=== PATIENT | female | born 1975 | race Caucasian/White ===

== ENCOUNTER 2020-04-16 01:31 | Emergency (ER) | payer OTHER ==
[~2020-04-16] VITALS: Ht 152.4 cm; Wt 59.0 kg
[2020-04-16 01:34] VITALS: Ht 152.4 cm; Wt 59.0 kg
[2020-04-16 03:28] LABS: PLATELET COUNT 153 x10^3mcL (130-400); RED CELL DISTRIBUTION WIDTH 13.1 % (11.5-14.5)
[2020-04-16 03:43] LABS: CALCIUM 8.6 mg/dL (8.5-10.1); CARBON DIOXIDE 23.5 mmol/L (21-32); CHLORIDE SERUM 107 mmol/L (98-107); CREATININE SERUM 0.8 mg/dL (0.6-1.0); GFR1 > 60 mL/min; GLUCOSE SERUM 116 mg/dL (74-106); POTASSIUM SERUM 3.7 mmol/L (3.5-5.1); SODIUM SERUM 140 mmol/L (136-145)
[2020-04-16 03:58] LABS: FREE T4 1.14 ng/dL (0.76-1.46)
[2020-04-16 04:29] VITALS: BP 120/61
== END 2020-04-16 04:29 | disposition home or self-care (01) ==
LOC: ED 01:31
PROVIDERS: Student in an Organized Health Care Education/Training Program
DX: N39.0 Urinary tract infection, site not specified (principal); D72.829 Elevated white blood cell count, unspecified; R53.1 Weakness
CPT/HCPCS: 84439